=== PATIENT | female | born 1965 | race Caucasian/White ===

== ENCOUNTER 2017-03-08 05:48 | Inpatient (IN) | payer OTHER ==
[2017-03-07 09:23] VITALS: BMI 30.5
[2017-03-08] VITALS (18 sets, daily range): BP systolic 101–161; BP diastolic 52–81; PULSE 78–108; RESP 16–18; Ht 172.7 cm; Wt 94.8 kg
[~2017-03-08] VITALS: Ht 172.7 cm; Wt 94.8 kg
[2017-03-08] MEDS ORDERED: CEFAZOLIN 2 GM/50 ML (PMX) 50 ML IVPB ONE (06:18)
[2017-03-08] MEDS ORDERED: LACTATED RINGER'S 1,000 ML IV* SCH (06:19)
[2017-03-08] MEDS ORDERED: PROPOFOL 20 ML ONE (06:29)
[2017-03-08] MEDS ORDERED: LIDOCAINE 2% (SDV) 5 ML INJ ONE (06:29)
[2017-03-08] MEDS ORDERED: FENTAnyl 50 MCG/ML VIAL ONE (06:29)
[2017-03-08] MEDS ORDERED: ROCURONIUM 50 MG INJ ONE (06:29)
[2017-03-08] MEDS ORDERED: MIDAZOLAM 1 MG/ML 2 ML INJ ONE (06:29)
[2017-03-08] MEDS ORDERED: NEOSTIGMINE 3 MG/3 ML SYRINGE ONE (06:29)
[2017-03-08] MEDS ORDERED: GLYCOPYRROLATE 0.4 MG INJ ONE (06:29)
[2017-03-08] MEDS ORDERED: EPHEDrine SULFATE 50 MG/5 ML SYG IV PRN (06:30)
[2017-03-08] MEDS ORDERED: DIPHENHYDRAMINE 50 MG INJ IV PRN (06:30)
[2017-03-08] MEDS ORDERED: FENTAnyl 50 MCG/ML VIAL IV PRN ×2 (06:30)
[2017-03-08] MEDS ORDERED: morphine (1 MG/ML) 10ML SYRINGE IV PRN ×3 (06:30)
[2017-03-08] MEDS ORDERED: hydrALAzine 20 MG INJ IV PRN (06:30)
[2017-03-08] MEDS ORDERED: LABETALOL HCL 20MG INJ IV PRN (06:30)
[2017-03-08] MEDS ORDERED: OXYCODONE/ACETAMINOPHEN (5/325) TAB PO PRN ×2 (06:30)
[2017-03-08] MEDS ORDERED: DEXAMETHASONE 4 MG/ML 1 ML INJ ONE (06:30)
[2017-03-08] MEDS ORDERED: ATROPINE 1 MG/10 ML SYRINGE IV PRN (06:30)
[2017-03-08] MEDS ORDERED: HYDROmorphONE (0.2 MG/ML) 10ML SYG IV PRN ×3 (06:30)
[2017-03-08] MEDS ORDERED: ONDANSETRON 4 MG INJ ONE (06:30)
[2017-03-08] MEDS ORDERED: ONDANSETRON 4 MG INJ IV PRN ×2 (06:30→11:30)
[2017-03-08] MEDS ORDERED: MEPERIDINE 25 MG INJ IV PRN (06:30)
[2017-03-08] MEDS ORDERED: MIDAZOLAM 1 MG/ML 2 ML INJ IV PRN (06:30)
[2017-03-08] MEDS ORDERED: LIDOCAINE 2%/EPI 30 ML INJ ONE (06:45)
[2017-03-08] MEDS ORDERED: SUGAMMADEX SODIUM 200 MG/2 ML VIAL IV ONE (07:00)
[2017-03-08] MEDS ORDERED: morphine SULFATE/PF (10 MG/10 ML) INJ ONE (07:23)
--- NOTE | 2017-03-08 07:38 | HPN ---
Date/Time of Note Date/Time of Note DATE: 03/08/17 TIME: 07:38 Interval H&P Admission Note Pt. seen H&P reviewed: No system changes EMELY MAYEN MD Mar 08, 2017 07:38
--- NOTE | 2017-03-08 08:21 | HP ---
Date/Time of Note Date/Time of Note DATE: 03/08/17 TIME: 08:17 Assessment/Plan Lines/Catheters IV Catheter Type (from Nrs): Peripheral IV HPI/ROS Admit Date/Time Admit Date/Time Mar 08, 2017 at 05:48 Hx of Present Illness 52 y.o who had x3 normal vaginal delivery hsa been suffering from prolapsed uterus which has been causing discomfort here for scheduled for vaginal hysterectomy and poss repair of cystocele and rectocele. LMP was 3weeks ago , also she had EMB on PMH/Family/Social Social History Smoking Status: Never smoker Exam/Review of Systems Vital Signs Vitals Vital Signs Date Time Temp Pulse Resp B/P Pulse Ox O2 Delivery O2 Flow Rate FiO2 03/08/17 06:44 98.3 78 18 161/81 100 Room Air Medications Medications Current Medications Lactated Ringer's (Lr) 1,000 ml @ 125 mls/hr Q8H IV* ; Start 03/08/17 at 06:19; Stop 03/08/17 at 14:18 EMELY MAYEN MD Mar 08, 2017 08:21
[2017-03-08] MEDS ORDERED: metroNIDAZOLE 500 MG/NS (PMX) 100 ML IVPB SCH ×2 (11:30→22:00)
--- NOTE | 2017-03-08 11:39 | SIPON ---
Date/Time of Note Date/Time of Note DATE: 03/08/17 TIME: 11:36 Operative Report Preoperative Diagnosis uterine prolapse large cystocele Postoperative Diagnosis same Operation/Procedure Performed vaginal hysterectomy and ant colporrhaphy Surgeon: EMELY MAYEN MD blacksmith assistant: OLY GONZALEZ MD Anesthesia Type: general Estimated Blood Loss: 200 - 250 ml's Transfusion Required: no Specimens uterus and cervix ant vaginal mucosa Grafts/Implants: none Grafts/Implants none Complications: no EMELY MAYEN MD Mar 08, 2017 11:39
[2017-03-08] MEDS: CEFAZOLIN 2 GM/50 ML (PMX) 50 ML IVPB SCH ×2 (15:17→21:53)
[2017-03-08] MEDS: DIPHENHYDRAMINE 50 MG INJ IV PRN (21:49)
--- NOTE | 2017-03-08 22:50 | HP ---
Date/Time of Note Date/Time of Note DATE: 03/08/17 TIME: 22:45 Assessment/Plan VTE Prophylaxis VTE Prophylaxis Intervention: ambulation, anti-embolic stocking Lines/Catheters IV Catheter Type (from Nrsg): Peripheral IV Urinary Cath still in place: Yes Reason Cath still needed: other (indicate) (postop) Assessment/Plan Assessment/Plan A; uterine prolapse 3rd degree cystocele P vaginal hysterectomy and anteior coporrhaphy Cont'd Hospitalization Reason: pain control and postop observation HPI/ROS Admit Date/Time Admit Date/Time Mar 08, 2017 at 05:48 Hx of Present Illness 52 y.o who had x3 normal vaginal delivery hsa been suffering from prolapsed uterus which has been causing discomfort here for scheduled for vaginal hysterectomy and poss repair of cystocele and rectocele. LMP was 3weeks ago , also she had EMB on ROS Constitutional: improved, no complaints Eyes: no complaints ENT: no complaints Respiratory: no complaints Cardiovascular: no complaints Gastrointestinal: no complaints Genitourinary: no complaints Musculoskeletal: no complaints Skin: no complaints Neurologic: no complaints Endocrine: no complaints Lymphatic: no complaints Psychological: nl mood/affect, no complaints Immunologic: no complaints PMH/Family/Social Past Medical History Medical History: no pertinent history Past Surgical History china dumont Family History Significant Family History: no pertinent family hx Social History Alcohol Use: none Smoking Status: Never smoker Drug Use: none Exam/Review of Systems Vital Signs Vitals Vital Signs Date Time Temp Pulse Resp B/P Pulse Ox O2 Delivery O2 Flow Rate FiO2 03/08/17 19:27 98.1 91 18 119/66 95 03/08/17 15:30 Room Air 03/08/17 11:58 2.0 Exam Constitutional: alert, oriented, well developed Psych: nl mood/affect, no complaints Head: atraumatic, normocephalic Eyes: EOMI, PERRL, nl conjunctiva, nl lids, nl sclera ENMT: nl external ears & nose, nl lips & teeth, nl nasal mucosa & septum Neck: non-tender, supple Respiratory: clear to auscultation, normal air movement Cardiovascular: nl pulses, regular rate and rhythm Gastrointestinal: nl liver, spleen, non-tender, soft Genitourinary - Female: uterus (prolapsed with large cystocele) Musculoskeletal: nl extremities to inspection Extremities: normal pulses Neurological: STERILE PROC TECH II-XII intact, nl mental status, nl speech, nl strength Skin: nl turgor, No rash or lesions Lymph: nl lymph nodes Medications Medications Current Medications Cefazolin Sodium/ Dextrose (Ancef 2 Gm/50 ml (Pmx)) 50 ml @ 100 mls/hr Q8 IVPB Last administered on 03/08/17 21:53; Admin Dose 100 MLS/HR; Start 03/08/17 at 14:00; Stop 03/09/17 at 06:29 Oxycodone/ Acetaminophen (Percocet (5/ 325)) 1 tab Q4H PRN PO PAIN LEVEL 6-10; Start 03/08/17 at 11:30 Ondansetron HCl 4 mg 4 mg Q6H PRN IV NAUSEA AND/OR VOMITING Last administered on 03/08/17 20:19; Admin Dose 4 MG; Start 03/08/17 at 11:30 Metronidazole (Flagyl 500 Mg (Pmx)) 100 ml @ 100 mls/hr Q8H IVPB ; Start at 23:00; Stop 03/09/17 at 07:59 Diphenhydramine HCl (Benadryl) 25 mg Q6H PRN IV ITCHING Last administered on 21:49; Admin Dose 25 MG; Start 03/08/17 at 21:00 MEELY MAYEN MD Mar 08, 2017 22:50
[2017-03-08] MEDS: metroNIDAZOLE 500 MG/NS (PMX) 100 ML IVPB SCH (23:41)
[2017-03-09 00:40] VITALS: BP 121/68; RESP 18
[2017-03-09 05:07] LABS: BASOPHILS % 0.2 % (0.0-2.0); EOSINOPHILS % 0.1 % (0.0-7.0); HEMATOCRIT 35.6 % (37.0-47.0); HEMOGLOBIN 12.2 g/dl (12.0-16.0); LYMPHOCYTES # 1.3 10^3/ul (0.8-2.9); MEAN CORPUSCULAR HEMOGLOBIN 28.6 pg (29.0-33.0); MEAN CORPUSCULAR HGB CONC 34.3 g/dl (32.0-37.0); MEAN CORPUSCULAR VOLUME 83.4 fl (82.0-101.0); MEAN PLATELET VOLUME 10.2 fl (7.4-10.4); MONOCYTE # 0.9 10^3/ul (0.3-0.9); MONOCYTES % 6.8 % (0.0-11.0); NEUTROPHILS % 83.5 % (39.0-77.0); PLATELET COUNT 155 10^3/UL (140-415); RED BLOOD COUNT 4.27 10^6/ul (4.20-5.40); RED CELL DISTRIBUTION WIDTH 13.3 % (11.5-14.5); WHITE BLOOD COUNT 13.8 10^3/ul (4.8-10.8)
[2017-03-09 06:11] LABS: CALCIUM 8.7 mg/dl (8.4-10.2); CREATININE 0.65 mg/dl (0.44-1.00); POTASSIUM 4.1 mmol/L (3.5-5.1)
[2017-03-09] MEDS: CEFAZOLIN 2 GM/50 ML (PMX) 50 ML IVPB SCH (06:27)
[2017-03-09] MEDS: DIPHENHYDRAMINE 50 MG INJ IV PRN (06:30)
[2017-03-09] MEDS: metroNIDAZOLE 500 MG/NS (PMX) 100 ML IVPB SCH (07:06)
[2017-03-09 08:03] VITALS: BP 117/58; RESP 18
[2017-03-09 09:41] LABS: ADD UMIC NO; UR ASCORBIC ACID NEGATIVE (NEGATIVE); UR BILIRUBIN (Dip) NEGATIVE (NEGATIVE); UR BLOOD (Dip) NEGATIVE (NEGATIVE); UR CLARITY CLEAR (CLEAR); UR COLOR YELLOW (YELLOW); UR GLUCOSE (Dip) NEGATIVE (NEGATIVE); UR KETONES (Dip) NEGATIVE (NEGATIVE); UR LEUKOCYTE ESTERASE (Dip) NEGATIVE Leu/ul (NEGATIVE); UR NITRITE (Dip) NEGATIVE (NEGATIVE); UR SPECIFIC GRAVITY (Dip) 1.016 (1.003-1.030); UR TOTAL PROTEIN (Dip) NEGATIVE (NEGATIVE); UR UROBILINOGEN (Dip) NEGATIVE (NEGATIVE)
[2017-03-09] MEDS: OXYCODONE/ACETAMINOPHEN (5/325) TAB PO PRN ×3 (09:53→22:02)
[2017-03-09] MEDS: LORATADINE/PSEUDOEPHED (SR) TAB PO SCH ×2 (13:50→22:02)
[2017-03-09] MEDS ORDERED: DIPHENHYDRAMINE 50 MG INJ IV PRN (15:00)
[2017-03-09 15:04] VITALS: BP 106/55; RESP 18
--- NOTE | 2017-03-09 15:11 | PD.PPDC ---
COLOR BUFFER Discharge Instruction Diagnosis Final Diagnosis: uterine prolapse cystocele Condition Patient Condition: Stable Diet Diet: Resume Regular Diet Activity/Restrictions Activity: May Shower Restrictions: No Exercising No Lifting Minimize Stair-climbing No Sexual Activity Nothing in the Vagina No [place] No Tampons, douche Follow-up Follow-up with Physician: 8 Return to clinic for EXECUTIVE CHEF Instructions: Fever greater than 101 Chills Worsening abdominal pain Excessive Vaginal Bleeding More than 2 pads per hour Unable to tolerate diet EMELY MAYEN MD Mar 09, 2017 15:11
--- NOTE | 2017-03-09 16:04 | PN ---
Date/Time of Note Date/Time of Note DATE: 03/09/17 TIME: 16:02 Assessment/Plan Lines/Catheters IV Catheter Type (from Nrsg): Saline Lock Danielle in Place (from Nrsg): Yes Subjective 24 Hr Interval Summary s eating ok voiding well ambulating ok O abdomen soft A stable P discharge home in am Exam/Review of Systems Vital Signs Vitals Vital Signs Date Time Temp Pulse Resp B/P Pulse Ox O2 Delivery O2 Flow Rate FiO2 03/09/17 15:04 97.8 83 18 106/55 94 03/09/17 01:04 Nasal Cannula 2.0 Intake and Output 03/08/17 03/08/17 03/09/17 15:00 23:00 07:00 Intake Total 1500 ml 900 ml 100 ml Output Total 800 ml 800 ml 900 ml Balance 700 ml 100 ml -800 ml Results Result Diagram: 03/09/17 0441 03/09/17 0441 EMELY MAYEN MD Mar 09, 2017 16:04
[2017-03-09 19:20] VITALS: BP 133/63; RESP 18
[2017-03-10 02:00] VITALS: BP 129/57; RESP 18
[2017-03-10] MEDS: OXYCODONE/ACETAMINOPHEN (5/325) TAB PO PRN (06:14)
--- NOTE | 2017-03-14 11:13 | OPR ---
DATE OF OPERATION: 03/08/2017 PREOPERATIVE DIAGNOSES: 1. Uterine prolapse. 2. Uterine leiomyoma. 3. Cystocele. POSTOPERATIVE DIAGNOSES: 1. Uterine prolapse. 2. Uterine leiomyoma. 3. Cystocele. NAME OF PROCEDURE: Total vaginal hysterectomy and anterior colporrhaphy. BAG MACHINE HELPER: Mickey Christy MD SURGEON: Steffi Batista MD ANESTHESIA: General. ANESTHESIOLOGIST: Refer to the chart. PROCEDURE: Under the appropriate induction of general anesthesia, patient was placed in the dorsal lithotomy position. Perineal area and vagina were was prepped and draped in usual aseptic manner. On inspection, there is no abnormal finding noted. A weighted speculum was introduced into the vagina and cervix was identified, which was red and hypertrophic and parous appearing. The cervix was grasped with a double prone tenaculum and Xylocaine with epinephrine was injected into the vaginal mucosa at the level of the cervical vaginal fold in a circular fashion. A circular incision was made on the cervical vaginal fold with a scalpel and the vaginal mucosa was from the underlying tissue posteriorly and anteriorly. Posteriorly, peritoneal reflection was found, which was entered and the weighted speculum was in place in the posterior cul-de-sac. An anteriorly further dissection, but because of the large cystocele has been sitting outside and some fibrotic change and difficult to find the peritoneal reflection. Posteriorly, the right uterosacral ligament was clamped and cut, ligated with a number 1 chromic catgut suture was left in for the next procedure. The same procedure was done on the left uterosacral ligament, which was clamped and cut, ligated with a number 1 chromic catgut. Further cardinal ligament was clamped and cut, ligated with number 1 chromic gut and the peritoneal reflection was trying to be identified, which was rather difficult because the cervix is elongated and the bladder was adherent to the underlying tissue due to the prolonged exposure to the outside. The uterine vessel was clamped and cut, ligated with number 1 chromic catgut with a posterior including the posterior peritoneal reflection and the finally anterior peritoneal reflection was identified with the finger inside and this was clamped with the Torie and the reflection was opened. Anteriorly Stephan retractor was introduced and the rest of the broad ligament and the round ligament was clamped and cut, ligated with a number 1 chromic catgut. An uterine fundus was trying to be delivered but it was difficult because of the size of the uterus, which is approximately 10 weeks of gestational size with the multiple fibroids. At this point, it was decided to bisect the uterus and the delivered the proximal portion of the utero-ovarian ligament and fallopian tube was clamped and doubly ligated with a number 1 chromic catgut on each side and the entire uterus and cervix was delivered out from the operative field and the pedicles on each side., which included the fallopian tube and utero-ovarian ligament was clamped and cut, and doubly ligated with number 1 chromic catgut and suture was left alone for the next procedure. After uterus and cervix was removed, the peritoneal dilatation was done starting from the 12 o'clock and clockwise using 0 chromic catgut in pursestring, thus the entire opening was closed and the peritoneal irrigation was done. Then the anterior vaginal wall was undermined starting from the midline using multiple Allis clamps and the bladder was from the anterior vaginal mucosa. The paravesical fascia was noted, which was up to the uterovesical angle. The angle ligature using number 1 Vicryl, using CT 2 needle and 2 [id number] sutures were placed and lifted up the bladder neck. The rest of the cystocele was closed using the same suture in the pursestring manner, thus completely imbricating the cystocele and redundant anterior vaginal mucosa was excised and this was closed with 2-0 chromic catgut in continuous manner, thus complete reduction of the cystocele obtained. And then the vaginal mucosa was closed horizontally starting from the right side and the entire vaginal mucosa was closed in continuous manner using 0 chromic catgut. No bleeding was noted. Irrigation done, which was satisfactory and Xeroform gauze was packed in the vaginal cavity further tamponade. Procedure was completed. Urine checked, which was clear and approximately 400 mL in the bag. ESTIMATED BLOOD LOSS: Less than 200 mL. The patient withstood the procedure well. Sent to the recovery room in stable condition. Dictated By: Steffi Batista MD /nadege/jeane /Document#: [id number]
== END 2017-03-10 07:10 | disposition home or self-care (01) | DRG 743 ==
LOC: REC 05:48 → MS1 13:01
PROVIDERS: ADMIT Obstetrics & Gynecology; ATTEND Obstetrics & Gynecology
PROC: 0UTC7ZZ Resection of Cervix, Via Natural or Artificial Opening (ICD-10-PCS; 2017-03-08)
PROC: 0JQC3ZZ Repair Pelvic Region Subcutaneous Tissue and Fascia, Percutaneous Approach (ICD-10-PCS; 2017-03-08)
PROC: 0UT97ZZ Resection of Uterus, Via Natural or Artificial Opening (ICD-10-PCS; principal; 2017-03-08 07:30)
DX: N81.3 Complete uterovaginal prolapse (principal); D25.9 Leiomyoma of uterus, unspecified; N81.10 Cystocele, unspecified
CPT/HCPCS: 80048; 81003; 85025; 86850; 86900; 86901; 86920; 87086; 88305; J0690; J1100; J1200; J2250; J2274; J2405; J2710; J3010